=== PATIENT | male | born 1940 | race Caucasian/White ===

== ENCOUNTER 2018-11-24 19:20 | Emergency (ER) | payer OTHER ==
[~2018-11-24] VITALS: Ht 170.2 cm; Wt 84.0 kg
[~2018-11-24 19:20] MED LIST: ALDACTONE25 MG PO; ALFUZOSIN PO; AMLODIPINE BESY10 MG PO; AVODART0.5 MG PO; CARVEDILOL3.125 MG PO; CIPROFLOXACN500 MG PO; LASIX 40 MG40 MG/TAB PO; LEVITRA10 MG PO; LISINOPRIL2.5 MG PO; ZOCOR20 M1 PO; ZPAK PO; [UNRECOGNIZED DRUG - OTHER] PO
[2018-11-24 20:05] VITALS: BP 148/68
== END 2018-11-24 20:05 | disposition home or self-care (01) | DRG 554 ==
LOC: ED 19:20
DX: M10.071 Idiopathic gout, right ankle and foot (principal); I10 Essential (primary) hypertension